=== PATIENT | female | born 1955 | race Caucasian/White ===

== ENCOUNTER 2020-05-20 07:37 | Outpatient (CLI) | payer MEDICARE ==
[2020-05-20] VITALS (21 sets, daily range): BP systolic 112–144; BP diastolic 57–92
[~2020-05-20 07:37] MED LIST: NO HOME MEDS
== END 2020-05-20 23:59 | disposition home or self-care (01) ==
LOC: CARD DIAG 07:37
PROVIDERS: ATTEND Internal Medicine Cardiovascular Disease
DX: R55 Syncope and collapse (principal)
CPT/HCPCS: 93660